=== PATIENT | male | born 1975 | race Two or more races ===

== ENCOUNTER 2019-04-15 19:34 | Emergency (ER) | payer SELFPAY ==
[~2019-04-15] VITALS: Ht 177.8 cm; Wt 68.0 kg
[2019-04-15 20:25] VITALS: BP 148/95
--- NOTE | 2019-04-15 20:25 | NUR ---
ED Nurse Note: pt ambulated into ED from home C/O trouble swallowing, joint pain, lesions on skin, and vomiting related to HIV flair up. Pt reports needing medication refill. Awaiting ERMD
--- NOTE | 2019-04-15 20:35 | NUR ---
ED Nurse Note: ERMD at bedside
[2019-04-15] MEDS ORDERED: TRIUMEQ 600-501 EACH PO (20:42)
--- NOTE | 2019-04-15 20:42 | Emergency Room Report ---
History of Present Illness General Chief Complaint: General Complaint Source: Patient Present Illness HPI 43-year-old male, history of HIV has been off his HIV medications for 2 weeks, no fevers no chills patient is starting to feel itchy, started to feel swollen lymph nodes, no chest pain or shortness of breath patient presents for medication refill and lab work, symptoms are aggravated by not taking his medications alleviated by taking the medication severity is moderate, constant patient presents for evaluation Allergies: Coded Allergies: No Known Allergies (Unverified , 04/15/19) Patient History Past Medical History: see triage record Reviewed Nursing Documentation: PMH: Agreed; PSxH: Agreed Review of Systems All Other Systems: negative except mentioned in HPI Physical Exam Vital Signs Date Time Temp Pulse Resp B/P (MAP) Pulse Ox O2 Delivery O2 Flow Rate FiO2 04/15/19 20:17 98.2 93 16 148/99 (115) 98 Room Air Sp02 EP Interpretation: reviewed, normal General Appearance: well appearing, no apparent distress, alert Head: normocephalic, atraumatic Eyes: bilateral eye PERRL, bilateral eye EOMI ENT: uvula midline, moist mucus membranes Neck: supple, thyroid normal, supple/symm/no masses Respiratory: lungs clear, no respiratory distress, no retraction, no accessory muscle use Cardiovascular #1: normal peripheral pulses, regular rate, rhythm, no edema, no gallop, no murmur Gastrointestinal: non tender, soft, no guarding, no rebound Musculoskeletal: normal inspection Neurologic: alert, oriented x3 Psychiatric: mood/affect normal Skin: no rash, warm/dry Medical Decision Making Diagnostic Impression: Primary Impression: Medication refill Additional Impression: HIV disease ER Course 43-year-old male presents with medication refill, differential diagnosis includes noncompliance, HIV infection counseled patient that his labs that are required may be send outs, will refill his Triumeq. Will provide patient a list of clinics, will provide a one-time dose of his antiretrovirals here Disposition home with return precautions no acute emergencies at this time Last Vital Signs Date Time Temp Pulse Resp B/P (MAP) Pulse Ox O2 Delivery O2 Flow Rate FiO2 04/15/19 20:17 98.2 93 16 148/99 (115) 98 Room Air Disposition: HOME, SELF-CARE Condition: Stable Scripts Abacavir/Dolutegravir/Lamivudi (Triumeq 600-50-300 mg Tablet) 1 Each Tablet 1 EACH PO DAILY, #60 TAB Prov: Jonathan Saeed MD 04/15/19 [address]errals: [facility] [place]. [facility] Patient Instructions: HIV Infection and AIDS, Medicine Refill at the Emergency Department Additional Instructions: The patient was provided with discharge instructions, notified to follow-up with a primary care doctor and or specialist in the next 24-48 hours, and to return to the ED if they have worsening of their symptoms. Please note that this report is being documented using DRAGON technology. This can lead to erroneous entry secondary to incorrect interpretation by the dictating instrument. Jonathan Saeed MD Apr 15, 2019 20:42
[2019-04-15] MEDS ORDERED: Epzicom tab ORAL ONE (20:45)
[2019-04-15] MEDS ORDERED: Dolutegravir Sodium 50mg tab ORAL ONE (20:45)
--- NOTE | 2019-04-15 20:45 | NUR ---
ED Nurse Note: All medications administered, pt tolerated well, no s/s of distress noted.
[2019-04-15] MEDS ORDERED: NYSTATIN100000 UN1 ORAL (20:49)
[2019-04-15 20:56] VITALS: BP 147/89
--- NOTE | 2019-04-15 20:56 | NUR ---
ER DISCHARGE NOTE: Patient is cleared to be discharged home per ERMD, pt is aox4, on room air, with stable vital signs. pt was given dc and prescription instructions, pt was able to verbalize understanding, pt id band removed. pt is able to ambulate with steady gait. pt took all belongings.
[2019-04-23] MEDS ORDERED: TRIUMEQ 600-501 EACH PO (15:53)
== END 2019-04-15 20:56 | disposition home or self-care (01) ==
LOC: EMR 20:40
DX: B20 Human immunodeficiency virus [HIV] disease (principal); Z76.0 Encounter for issue of repeat prescription
CPT/HCPCS: 99282